=== PATIENT | female | born 1950 | race Caucasian/White ===

== ENCOUNTER 2019-12-07 21:20 | Emergency (ER) | payer MEDICARE, OTHER, SELFPAY ==
[2019-12-07 21:26] VITALS: BP 133/100; PULSE 140; RESP 20; TEMP 36.3; O2SAT 99; BMI 18.5
--- NOTE | 2019-12-07 21:31 | ED_ITS ---
Entered by Vee Brandon, acting as scribe for Severiano Leon MD HPI - Nausea/Vomiting/Diarrhea General: Chief complaint: Nausea/Vomiting/Diarrhea Stated complaint: FEVER, N/V/D Time Seen by Provider: 12/07/19 21:30 Source: patient and family Mode of arrival: ambulatory Limitations: no limitations History of Present Illness: HPI Narrative: 69 yo female presents to ED with complaints of vomiting for 2 days. She said she has vomited a bunch . She was told had a virus at [facility]. The patient tested negative for flu. She said it is painful to touch her stomach. She said her last BM was yesterday. The patient's family member stated the patient was given nausea medicine (Zofran) yesterday and as soon as it wore off the patient began vomiting again. MD elicited complaint: nausea and vomiting Onset (ago): day(s) (2) Description of vomiting: none Associated nausea: Yes Associated abdominal pain: Yes Location of pain: Diffuse Pain consistency: constant Severity: severe Exacerbating factors: movement Relieving factors: none Associated symtoms: Reports nausea and weakness; Denies change in vision, chest pain or headache(s) Treatment prior to arrival: other (Zofran at [facility]) Review of Systems Const: Denies: fever or chills Eyes: Denies: change in vision ENMT: Denies: throat pain or mouth pain Card: Denies: chest pain Resp: Denies: shortness of breath GI: Reports: nausea : Denies: difficulty urinating Musc: Denies: back pain or joint pain Skin/Breast: Denies: rash Neuro: Denies: headache or behavioral changes Psych: Denies: depression Endo: Denies: excessive urination Fantasma/Lymph: Denies: easy bruising All/Imm: Denies: hives PFSH ED PFSH: Statuses (acute, chronic, etc) shown below reflect problem list status as previously entered and may not be historically accurate Social History Smoking and tobacco status: former smoker Physical Exam Const: COMMON NORMALS: no apparent distress, average body habitus and oriented x3 HENMT: COMMON NORMALS: head/scalp atraumatic HEAD & SCALP: atraumatic Eye: COMMON NORMALS: PERRL PUPIL: Yes PERRL Chest: COMMONS NORMALS: inspection of chest normal and palpation of chest normal Resp: COMMON NORMALS: normal respiratory effort, no retractions, no use of accessory muscles and clear to auscultation bilaterally AUSCULTATION: clear to auscultation bilaterally Cardio: COMMON NORMALS: regular rate and regular rhythm RATE: regular rate RHYTHM: regular rhythm GI: COMMON NORMALS: soft to palpation INSPECTION: Yes normal to inspection PALPATION: Yes soft OTHER: Mild diffuse tenderness Neuro: COMMON NORMALS: oriented x3 Psych: COMMON NORMALS: mental status grossly normal and thought process normal THOUGHT PROCESS: normal thought process Skin: COMMON NORMALS: no rashes or lesions noted and no wounds GENERAL SKIN EXAM: no rashes or lesions noted Course Vital Signs: Vital signs: Vital Signs Temperature 98.3 F 12/08/19 03:25 Pulse Rate 82 12/08/19 03:25 Respiratory Rate 16 12/08/19 03:25 Blood Pressure 168/89 12/08/19 03:25 Pulse Oximetry 98 12/08/19 03:25 MDM - Nausea/Vomiting/Diarrhea MDM Narrative: Medical decision making narrative: Patient presents with nausea vomiting is likely food poisoning versus viral. CT scan here is negative. She feels much improved after IV fluids and Zofran. Will prescribe her Zofran for home and she is stable for discharge. She is to follow-up with primary care doctor in 3 to 5 days and return if worsening. Lab Data: Labs: Lab Results 12/07/19 12/07/19 Range/Units 21:45 21:45 WBC 9.3 (4.0-10.0) 10^3/ uL RBC 3.27 L (4.1-5.3) 10^6/u L Hgb 9.7 L (11.5-15.3) g/dL Hct 32.4 L (37.0-47.0) % MCV 99.1 H (81-99) fL MCH 29.7 (28.0-34.0) pg MCHC 29.9 L (30.0-36.0) g/dL RDW 13.5 (12.1-15.1) % Plt Count 517 H (130-400) 10^3/c mm MPV 10.1 (7.4-10.4) fL Neut % (Auto) 84.8 % Lymph % (Auto) 8.8 % Sargent % (Auto) 5.9 % Eos % (Auto) 0.1 % Baso % (Auto) 0.1 % Neut # (Auto) 7.9 H (1.8-7.7) 10^3/u L Lymph # (Auto) 0.8 (0.8-4.8) 10^3/u L Sargent # (Auto) 0.6 (0.2-0.9) 10^3/u L Eos # (Auto) 0.0 (0.0-0.8) 10^3/u L Baso # (Auto) 0.0 (0.0-0.1) 10^3/u L Nucleated RBC % (a uto) 0 % Nucleated RBCs # 0.0 /100WBC Sodium 133 L (136-145) mmol/L Potassium 3.5 (3.5-5.1) mmol/L Chloride 91 L (98-107) mmol/L Carbon Dioxide 23 (22-29) mmol/L Anion Gap 22.5 H (5-19) BUN 16 (8-23) mg/dL Creatinine 0.8 (0.5-0.9) mg/dL GFR Calculation 71.3 L (90-130) mL/min Glucose 170 H (74-106) mg/dL Calcium 10.7 H (8.5-10.5) mg/dL Total Bilirubin 0.3 (0.15-1.2) mg/dL AST 19 (0-32) U/L ALT 7 (0-33) U/L Alkaline Phosphata se 79 (35-105) IU/L Total Protein 7.5 (6.6-8.7) g/dL Albumin 4.6 (3.5-5.2) g/dL Globulin 2.9 (1.3-4.6) g/dL Lipase 27 (13-60) U/L Imaging Data^: CT Abd/Pel: Radiologist's impression: [facility] Final Radiology Report Call: [phone] assistance Online chat: [email or web address] Name: RAMIREZ BRANDON Age: 69Years F Date: 12/07/2019 SSN: -- : [id number] Study: CT ABDOMEN/PELVIS W Requesting Physician: severiano Leon Images: 190 Add?l Studies: Provided Clinical History: abd pain Procedure Accession CTDI Vol (mGy) DLP (mGy-cm) CT ABDOMEN/PELVIS W [id number] 448.77 Page 1 of 2 PROCEDURE INFORMATION: Exam: CT Abdomen And Pelvis With Contrast Exam date and time: 12/07/2019 10:10 PM Age: 69 years old Clinical indication: Abdominal pain; Generalized; Prior surgery; Surgery date: 6+ months; Surgery type: Bowel; Additional info: Abd pain TECHNIQUE: Imaging protocol: Computed tomography of the abdomen and pelvis with intravenous contrast. Sagittal and coronal reformatted images were created and reviewed. Total DLP: 448.77 mGy-cm Radiation optimization: All CT scans at this facility use at least one of these dose optimization techniques: automated exposure control; mA and/or kV adjustment per patient size (includes targeted exams where dose is matched to clinical indication); or iterative reconstruction. Contrast material: OMNI 300; Contrast volume: 75 ml; Contrast route: 20G; COMPARISON: No relevant prior studies available. FINDINGS: Lungs: Small pneumatoceles in the right lower lobe. There is linear scarring in the right middle lobe. Pleural space: No pleural effusion. Heart: Visualized portions of the heart are unremarkable. Liver: The liver is unremarkable. Gallbladder and bile ducts: The gallbladder is unremarkable. No biliary ductal dilatation. Pancreas: The pancreas is unremarkable. No pancreatic ductal dilatation. Spleen: The spleen is unremarkable. Adrenals: The right and left adrenal glands are unremarkable. [email or web address] Final Radiology Report CONFIDENTIALITY STATEMENT This report is intended only for use by the referring physician, and only in accordance with law. If you received this in error, call [phone]. Page 2 of 2 Kidneys and ureters: Subcentimeter hypodense foci in both right and left kidneys that are too small to characterize, however likely represent small cysts. Simple cyst in the left kidney measuring 2.1 cm. The right and left ureters are unremarkable. Stomach and bowel: Fluid within the small bowel and colon without evidence of mesenteric lymphadenopathy or bowel wall thickening. Increased density in the colon that may represent swallowed medications. Appendix: Appendix not definitely visualized. No inflammatory changes in the pericecal region however. Intraperitoneal space: No free intraperitoneal air. No ascites. No loculated fluid collections to suggest an abscess. Vasculature: Extensive atherosclerotic changes in the visualized arteries. No evidence for aortic aneurysm or aortic dissection. Hepatic veins, portal veins, splenic vein, and SMV are patent. Lymph nodes: No lymphadenopathy. Bladder: Mild bladder distention. Reproductive: Patient has had a previous hysterectomy. The ovaries are not definitely visualized, not an expected in a postmenopausal female. This may be due to ovarian atrophy. Alternatively, the patient may have had a previous bilateral oophorectomy. Bones/joints: Bone islands in the right femur and spine. Degenerative changes in the spine. Soft tissues: Surgical clips in the right groin and left groin. No acute abnormality in the extraabdominal soft tissues. IMPRESSION: 1. Fluid within the small bowel and colon without evidence of mesenteric lymphadenopathy or bowel wall thickening. This may reflect viral gastroenteritis in the appropriate clinical situation. 2. Mild bladder distention. 3. Incidental/nonacute findings are listed in the report. COMMENT: Consistent with the [employer]'s Incidental Findings Committee white paper (J Am Kathia Radiol 2018): Any incidental cystic renal lesion classified in this report as too small to characterize or simple appearing is likely a benign cyst. No follow-up imaging is recommended for these lesions per consensus recommendations based on imaging criteria. Thank you for allowing us to participate in the care of your patient. Dictated and Authenticated by: Chantale Hernandez MD 12/07/2019 10:34 Discharge Plan Discharge Patient Disposition: Home, Self-Care Clinical Impression: Vomiting Qualifiers: Vomiting type: unspecified Vomiting Intractability: non-intractable Nausea presence: with nausea Qualified Code(s): R11.2 - Nausea with vomiting, unspecified Condition: Stable Prescriptions: New Zofran 4 mg tablet 4 mg PO QID PRN (Reason: nausea and vomiting) Qty: 14 RF: 0 Discharge Orders: Discharge Order (Routine); Ordered 12/07/19 Ordered By: Severiano Leon Discharge Diet: Advance as tolerated Discharge Activity: Resume usual activity Patient Instructions: Acute Nausea and Vomiting (ED) Discharge Date/Time: 12/08/19 03:27 Coding Level of Care Code ED Digital Photographer for Chg Fwd Exam Problem Focused The documentation recorded by the Aleksandr li Valerie R, accurately reflects the service I personally performed and the decisions made by me, Severiano Gilmore MD Dec 07, 2019 21:20
--- NOTE | 2019-12-07 21:34 | CTR_ITS ---
PROCEDURE INFORMATION: Exam: CT Abdomen And Pelvis With Contrast Exam date and time: 12/07/2019 10:10 PM Age: 69 years old Clinical indication: Abdominal pain; Generalized; Prior surgery; Surgery date: 6+ months; Surgery type: Bowel; Additional info: Abd pain TECHNIQUE: Imaging protocol: Computed tomography of the abdomen and pelvis with intravenous contrast. Sagittal and coronal reformatted images were created and reviewed. Total DLP: 448.77 mGy-cm Radiation optimization: All CT scans at this facility use at least one of these dose optimization techniques: automated exposure control; mA and/or kV adjustment per patient size (includes targeted exams where dose is matched to clinical indication); or iterative reconstruction. Contrast material: OMNI 300; Contrast volume: 75 ml; Contrast route: 20G; COMPARISON: No relevant prior studies available. FINDINGS: Lungs: Small pneumatoceles in the right lower lobe. There is linear scarring in the right middle lobe. Pleural space: No pleural effusion. Heart: Visualized portions of the heart are unremarkable. Liver: The liver is unremarkable. Gallbladder and bile ducts: The gallbladder is unremarkable. No biliary ductal dilatation. Pancreas: The pancreas is unremarkable. No pancreatic ductal dilatation. Spleen: The spleen is unremarkable. Adrenals: The right and left adrenal glands are unremarkable. Kidneys and ureters: Subcentimeter hypodense foci in both right and left kidneys that are too small to characterize, however likely represent small cysts. Simple cyst in the left kidney measuring 2.1 cm. The right and left ureters are unremarkable. Stomach and bowel: Fluid within the small bowel and colon without evidence of mesenteric lymphadenopathy or bowel wall thickening. Increased density in the colon that may represent swallowed medications. Appendix: Appendix not definitely visualized. No inflammatory changes in the pericecal region however. Intraperitoneal space: No free intraperitoneal air. No ascites. No loculated fluid collections to suggest an abscess. Vasculature: Extensive atherosclerotic changes in the visualized arteries. No evidence for aortic aneurysm or aortic dissection. Hepatic veins, portal veins, splenic vein, and SMV are patent. Lymph nodes: No lymphadenopathy. Bladder: Mild bladder distention. Reproductive: Patient has had a previous hysterectomy. The ovaries are not definitely visualized, not an expected in a postmenopausal female. This may be due to ovarian atrophy. Alternatively, the patient may have had a previous bilateral oophorectomy. Bones/joints: Bone islands in the right femur and spine. Degenerative changes in the spine. Soft tissues: Surgical clips in the right groin and left groin. No acute abnormality in the extra-abdominal soft tissues. CT/CT abdomen pelvis w con* [id number] IMPRESSION: 1. Fluid within the small bowel and colon without evidence of mesenteric lymphadenopathy or bowel wall thickening. This may reflect viral gastroenteritis in the appropriate clinical situation. 2. Mild bladder distention. 3. Incidental/nonacute findings are listed in the report. COMMENT: Consistent with the [employer]'s Incidental Findings Committee white paper (J Am Kathia Radiol 2018): Any incidental cystic renal lesion classified in this report as too small to characterize or simple appearing is likely a benign cyst. No follow-up imaging is recommended for these lesions per consensus recommendations based on imaging criteria. Radiation Dose CTDIVOL = (mGy): DLP = 448.77 (mGy-cm)
[2019-12-07 21:52] LABS: Basophils % 0.1 %; Eosinophils % 0.1 %; Hematocrit 32.4 % (37.0-47.0); Hemoglobin 9.7 g/dL (11.5-15.3); Lymphocytes # 0.8 10^3/uL (0.8-4.8); Lymphocytes % 8.8 %; Mean Corpuscular HGB Conc 29.9 g/dL (30.0-36.0); Mean Corpuscular Hemoglobin 29.7 pg (28.0-34.0); Mean Corpuscular Volume 99.1 fL (81-99); Mean Platelet Volume 10.1 fL (7.4-10.4); Monocytes # 0.6 10^3/uL (0.2-0.9); Monocytes % 5.9 %; Neutrophils # 7.9 10^3/uL (1.8-7.7); Neutrophils % 84.8 %; Nucleated Red Blood Cells % 0 %; Platelet Count 517 10^3/cmm (130-400); Red Blood Count 3.27 10^6/uL (4.1-5.3); Red Cell Distribution Width 13.5 % (12.1-15.1); White Blood Count 9.3 10^3/uL (4.0-10.0)
[2019-12-07] MEDS: sodium chloride 0.9% 1,000 ML 999 ML IV (22:05)
[2019-12-07] MEDS: ondansetron 2 mg/ML SDV 2 mL 4 MG IVP (22:05)
[2019-12-07 22:07] LABS: Alanine Aminotransferase 7 U/L (0-33); Albumin Level 4.6 g/dL (3.5-5.2); Alkaline Phosphatase 79 IU/L (35-105); Anion Gap 22.5 (5-19); Aspartate Amino Transferase 19 U/L (0-32); Blood Urea Nitrogen 16 mg/dL (8-23); Calcium 10.7 mg/dL (8.5-10.5); Carbon Dioxide 23 mmol/L (22-29); Chloride 91 mmol/L (98-107); Globulin 2.9 g/dL (1.3-4.6); Glomerular Filtration Rate 71.3 mL/min (90-130); Glucose 170 mg/dL (74-106); Lipase 27 U/L (13-60); Potassium 3.5 mmol/L (3.5-5.1); Sodium 133 mmol/L (136-145); Total Bilirubin 0.3 mg/dL (0.15-1.2); Total Protein 7.5 g/dL (6.6-8.7)
[2019-12-07] MEDS: iohexol 300 mg/mL 100 mL Btl IV (22:16)
[2019-12-07 22:20] VITALS: BP 116/68; PULSE 120; RESP 16; O2SAT 96
[2019-12-08 00:13] VITALS: BP 185/110; PULSE 92; RESP 18; O2SAT 95
[2019-12-08] MEDS: metoprolol succinate ER (24 HR) 50 mg Tablet PO (01:10)
[2019-12-08] MEDS: hyDRALAzine 20 mg/mL INJ 1 mL IVP (02:45)
[2019-12-08 03:25] VITALS: BP 168/89; PULSE 82; RESP 16; TEMP 36.8; O2SAT 98
== END 2019-12-08 03:27 | disposition home or self-care (01) ==
PROVIDERS: Emergency Provider Emergency Medicine
DX: R11.2 Nausea with vomiting, unspecified (principal); Z87.891 Personal history of nicotine dependence
CPT/HCPCS: 36415; 74177; 80053; 83690; 85025; 96374; 99282; J0360; J2405; J7030; Q9967